=== PATIENT | male | born 1960 | race Caucasian/White ===

== ENCOUNTER → 2022-02-14 | Outpatient (CLI) | payer BC ==
[~2022-02-14] MED LIST: PREDNISONE 50 M50 MG PO; SINGULAIR10 MG PO; SYMBICORT 160-1 INHA INH; VITAMIN D31000 UNI1 PO; ZESTRIL30 MG PO; ZOCOR 40 MG TAB40 MG PO
== END ==
LOC: HEART 5 02-10 13:30
DX: R07.9 Chest pain, unspecified (principal); R06.02 Shortness of breath

== ENCOUNTER → 2022-03-17 | Outpatient (CLI) | payer BC | LOC: HEART 5 08:59 | DX: R07.9 Chest pain, unspecified (principal); R06.02 Shortness of breath | CPT/HCPCS: 78452; A9502; J2785 ==